=== PATIENT | male | born 1975 | race Caucasian/White ===

== ENCOUNTER 2016-11-25 22:41 | Emergency (ER) | payer BC ==
[~2016-11-25] VITALS: Ht 175.3 cm; Wt 94.5 kg
[~2016-11-25 22:41] MED LIST: IBUP-1542 PO; NPH10OT LEFT EAR
[2016-11-25 22:48] VITALS: Ht 175.3 cm; Wt 94.5 kg
[2016-11-26] MEDS ORDERED: SOD CHLORIDE 0.9% 1,000 ML IV STA (00:14)
[2016-11-26] MEDS ORDERED: morphine 2 MG INJ IV STA (00:14)
[2016-11-26] MEDS ORDERED: ONDANSETRON 4 MG INJ IV STA (00:14)
[2016-11-26 01:03] LABS: BASOPHILS % 0.5 % (0.0-2.0); EOSINOPHILS # 0.2 10^3/ul (0.0-0.5); EOSINOPHILS % 1.9 % (0.0-7.0); HEMATOCRIT 44.7 % (42.0-52.0); HEMOGLOBIN 15.5 g/dl (14.0-18.0); LYMPHOCYTES # 3.6 10^3/ul (0.8-2.9); LYMPHOCYTES % 46.5 % (15.0-51.0); MEAN CORPUSCULAR HEMOGLOBIN 30.3 pg (29.0-33.0); MEAN CORPUSCULAR HGB CONC 34.7 g/dl (32.0-37.0); MEAN CORPUSCULAR VOLUME 87.5 fl (82.0-101.0); MEAN PLATELET VOLUME 9.5 fl (7.4-10.4); MONOCYTE # 0.7 10^3/ul (0.3-0.9); MONOCYTES % 8.3 % (0.0-11.0); NEUTROPHIL # 3.3 10^3/ul (1.6-7.5); NEUTROPHILS % 42.5 % (39.0-77.0); PLATELET COUNT 254 10^3/UL (140-415); RED BLOOD COUNT 5.11 10^6/ul (4.70-6.10); RED CELL DISTRIBUTION WIDTH 11.9 % (11.5-14.5); WHITE BLOOD COUNT 7.8 10^3/ul (4.8-10.8)
[2016-11-26 01:14] LABS: ADD UMIC NO; UR ASCORBIC ACID NEGATIVE (NEGATIVE); UR BILIRUBIN (Dip) NEGATIVE (NEGATIVE); UR BLOOD (Dip) NEGATIVE (NEGATIVE); UR CLARITY CLEAR (CLEAR); UR COLOR STRAW (YELLOW); UR GLUCOSE (Dip) NEGATIVE (NEGATIVE); UR KETONES (Dip) NEGATIVE (NEGATIVE); UR LEUKOCYTE ESTERASE (Dip) NEGATIVE Leu/ul (NEGATIVE); UR NITRITE (Dip) NEGATIVE (NEGATIVE); UR RBC 0 /HPF (0-5); UR SPECIFIC GRAVITY (Dip) 1.015 (1.003-1.030); UR TOTAL PROTEIN (Dip) NEGATIVE (NEGATIVE); UR UROBILINOGEN (Dip) NEGATIVE (NEGATIVE)
[2016-11-26 01:22] LABS: ALBUMIN 4.3 g/dl (3.3-4.9); ALBUMIN/GLOBULIN RATIO 1.04; BILIRUBIN,INDIRECT 0.2 mg/dl (0-1.1); BILIRUBIN,TOTAL 0.2 mg/dl (0.2-1.3); CALCIUM 9.6 mg/dl (8.4-10.2); CREATININE 0.89 mg/dl (0.61-1.24); POTASSIUM 4.1 mmol/L (3.5-5.1); TOTAL PROTEIN 8.4 g/dl (6.1-8.1)
[2016-11-26] MEDS ORDERED: IOHEXOL 300MG/ML 150 ML BTL ONE (01:40)
[2016-11-26] MEDS ORDERED: SOD CHLORIDE 0.9% 100 ML ONE (01:40)
--- NOTE | 2016-11-26 03:41 | RADRPT ---
PROCEDURE: CT Abdomen and pelvis with contrast. CLINICAL INDICATION: Abdominal pain. TECHNIQUE: CT scan of the abdomen and pelvis with contrast was performed on a multi-detector high -resolution CT scanner. The patient was scanned following the uncomplicated administration of 100 c c of Omnipaque 300 intravenous contrast. Coronal and sagittal reformatted images were obtained from the axial source images. Images were reviewed on a high-resolution PACS workstation. One or more of the following dose reduction techniques were used: - Automated exposure control. - Adjustment of the mA and/or kV according to patient size. - Use of iterative reconstruction technique. Exam CTD/vol = 15.49 mGy. Total exam DLP = 1011.33 mGy-cm. COMPARISON: None. FINDINGS: Evaluation of the lung bases demonstrates no pleural or parenchymal disease. Abdomen: The liver is normal in size. There is no focal mass or dilatation of the biliary tree. T he gallbladder is not distended. The spleen, pancreas and bilateral adrenal glands are within cate l limits. Bilateral kidneys are normal in size with symmetric enhancement. There is no focal mass, hydronephrosis or hydroureter. There is no retroperitoneal adenopathy. The abdominal aorta is of normal caliber. There is no abnormal bowel wall thickening or distension. There is no bowel obstruction or free air . A normal appendix is identified. There is no diverticulosis or diverticulitis. There is no asci quan. Pelvis: The bladder is unremarkable. The prostate and seminal vesicles are within normal limits. There is no significant pelvic adenopathy or free fluid. Evaluation of the osseous structures demonstrates no suspicious lytic or blastic lesion. There is a defect of the left pars interarticularis of L5. IMPRESSION: No acute abnormality identified within the abdomen and pelvis. Left pars defect of L5. .Adrián Le MD, MD Date Time Electronically viewed and signed by .Adrián Le MD, MD on 11/26/2016 03:41 .T/
[2016-11-26] MEDS ORDERED: CYCL-319 PO (03:46)
[2016-11-26] MEDS ORDERED: IBUP800T25 PO (03:46)
--- NOTE | 2016-11-26 03:51 | ERD ---
ER Documentation Chief Complaint Date/Time DATE: 11/26/16 TIME: 03:48 Chief Complaint RLQ abd pain x 2 days HPI Patient is a 41-year-old male who presents with a right lower quadrant abdominal pain he has had for 2 days. States the pain is 10 out of 10. He denies any fever. Denies any nausea or vomiting. Denies any dysuria hematuria or increased urinary frequency. Denies any testicular pain. Denies any fever. Pain is worse when bending over. Has not taken any medication for pain. ROS All systems reviewed and are negative except as per history of present illness. Medications Home Meds Active Scripts Ibuprofen* (Motrin*) 800 Mg Tab, 800 MG PO Q6, #30 TAB Prov:BUDDY KNOTT PA-C 11/26/16 Cyclobenzaprine Hcl* (Cyclobenzaprine Hcl*) 10 Mg Tablet, 10 MG PO TID, #20 TAB Prov:BUDDY KNOTT PA-C 11/26/16 Neomycin/Polymyxin/Hydrocort* (Cortisporin* Otic) 10 Ml Susp, 4 DROP LEFT EAR QID for 7 Days, EA Prov:JOHNNY SERRANO MD 01/26/15 Ibuprofen* (Ibuprofen*) 600 Mg Tablet, 600 MG PO Q6, #14 TAB Prov:JOHNNY SERRANO MD 01/26/15 Allergies Allergies: Coded Allergies: No Known Allergy (Unverified , 01/26/15) PMhx/Soc History of Surgery: No Anesthesia Reaction: No Hx Neurological Disorder: No Hx Respiratory Disorders: No Hx Cardiac Disorders: No Hx Psychiatric Problems: No Hx Miscellaneous Medical Probl: No (NO MED HX) Hx Alcohol Use: No Hx Substance Use: No Hx Tobacco Use: No Smoking Status: Never smoker FmHx Family History: No diabetes Physical Exam Vitals Vital Signs Date Time Temp Pulse Resp B/P Pulse Ox O2 Delivery O2 Flow Rate FiO2 11/25/16 22:48 98.4 69 20 170/91 98 Physical Exam Const: [] Head: Atraumatic Eyes: Normal Conjunctiva ENT: Normal External Ears, Nose and Mouth. Neck: Full range of motion..~ No meningismus. Resp: Clear to auscultation bilaterally Cardio: Regular rate and rhythm, no murmurs Abd: Soft, non tender, non distended. Normal bowel sounds Skin: No petechiae or rashes Back: No midline or flank tenderness Ext: No cyanosis, or edema Neur: Awake and alert Psych: Normal Mood and Affect Result Diagram: 11/26/167 11/26/16 0037 Results 24 hrs Laboratory Tests Test 11/26/16 00:27 11/26/16 00:37 Urine Color STRAW Urine Clarity CLEAR Urine pH 6.0 Urine Specific [place] 1.015 Urine Ketones NEGATIVEmg/dL Urine Nitrite NEGATIVEmg/dL Urine Bilirubin NEGATIVEmg/dL Urine Urobilinogen NEGATIVEmg/dL Urine Leukocyte Esterase NEGATIVELeu/ul Urine Microscopic RBC 0/HPF Urine Microscopic WBC 0/HPF Urine Hemoglobin NEGATIVEmg/dL Urine Glucose NEGATIVEmg/dL Urine Total Protein NEGATIVEmg/dl White Blood Count 7.810^3/ul Red Blood Count 5.1110^6/ul Hemoglobin 15.5g/dl Hematocrit 44.7% Mean Corpuscular Volume 87.5fl Mean Corpuscular Hemoglobin 30.3pg Mean Corpuscular Hemoglobin Concent 34.7g/dl Red Cell Distribution Width 11.9% Platelet Count 54768^3/UL Mean Platelet Volume 9.5fl Neutrophils % 42.5% Lymphocytes % 46.5% Monocytes % 8.3% Eosinophils % 1.9% Basophils % 0.5% Nucleated Red Blood Cells % 0.0/100WBC Neutrophils # 3.310^3/ul Lymphocytes # 3.610^3/ul Monocytes # 0.710^3/ul Eosinophils # 0.210^3/ul Basophils # 0.010^3/ul Nucleated Red Blood Cells # 0.010^3/ul Sodium Level 138mmol/L Potassium Level 4.1mmol/L Chloride Level 104mmol/L Carbon Dioxide Level 26mmol/L Anion Gap 12 Blood Urea Nitrogen 16mg/dl Creatinine 0.89mg/dl Glucose Level 98mg/dl Calcium Level 9.6mg/dl Total Bilirubin 0.2mg/dl Direct Bilirubin 0.00mg/dl Indirect Bilirubin 0.2mg/dl Aspartate Amino Transf (AST/SGOT) 32IU/L Alanine Aminotransferase (ALT/SGPT) 49IU/L Alkaline Phosphatase 110IU/L Total Protein 8.4g/dl Albumin 4.3g/dl Globulin 4.10g/dl Albumin/Globulin Ratio 1.04 Lipase 104U/L Current Medications Medications (Trade) Dose Ordered Sig/Jude Route PRN Reason Start Time Stop Time Status Last Admin Dose Admin Sodium Chloride (NS) 1,000 ml @ 1,000 mls/hr Q1H STAT IV 11/26/16 00:14 11/26/16 01:13 DC 11/26/16 00:44 Morphine Sulfate (morphine) 2 mg ONCE STAT IV 11/26/16 00:14 11/26/16 00:17 DC 11/26/16 00:44 Ondansetron HCl (Zofran Inj) 4 mg ONCE STAT IV 11/26/16 00:14 11/26/16 00:17 DC 11/26/16 00:44 IV Flush 10 ml 10 ml STK-MED ONCE .ROUTE 11/26/16 01:40 11/26/16 01:41 DC 11/26/16 02:38 Sodium Chloride (NS) 100 ml @ ud STK-MED ONCE .ROUTE 11/26/16 01:40 11/26/16 01:41 DC 11/26/16 02:39 Iohexol (Omnipaque 300mg/ ml) 150 ml STK-MED ONCE .ROUTE 11/26/16 01:40 11/26/16 01:41 DC 11/26/16 02:39 Procedures/MDM Patient's blood pressure was elevated (>120/80) but appears stable without evidence of hypertension emergency or urgency. The patient was counseled about the risks of hypertension and urged to pursue outpatient monitoring and therapy within a week with their primary care physician. Otherwise vitals are within normal limits. The differential diagnosis includes but is not limited to appendicitis, cholelithiasis, cholecystitis, pancreatitis, hepatitis, gastritis , peptic ulcer disease, bowel obstruction, diverticulitis, renal disease including stones, torsion, AAA, pyelonephritis, and others. He has mild right lower quadrant tenderness. No testicular pain abdominal labs and CT scan were ordered. Laboratory analysis shows no evidence of acute emergent abnormality. No evidence of significant leukocytosis suggesting systemic infection or severe anemia. No evidence of acute renal or liver failure, no evidence of severe alkalosis or acidosis. CT scan also unremarkable. No clear cause for patient' s symptoms however it does not appear to be any emergent cause of his symptoms. His pain might be musculoskeletal. He is discharged with ibuprofen, Silas and Flexeril. Patient counseled regarding my diagnostic impression and care plan. Prior to discharge all questions answered. Pt agrees with treatment plan and understands strict return precautions. Pt is instructed to follow up with primary care provider within 24-48 hours. Precautionary instructions provided including instructions to return to the ER if not improving or for any worsening or changing symptoms or concerns. Departure Diagnosis: Primary Impression: Abdominal pain Condition: Stable Patient Instructions: Abdominal Pain Additional Instructions: Llame al doctor CAMILO y duncan risa DUSTY PARA DENTRO DE 1-2 MAYNARD.Dgale a la secretaria que nosotros le instruimos hacer esta dusty.Avise o llame si barron condicin se empeora antes de la dusty. Regresa aqui si peor o no mejor. BUDDY KNOTT PA-C Nov 26, 2016 03:51
[2016-11-26 03:56] VITALS: BP 152/91; PULSE 66; RESP 20
== END 2016-11-26 04:00 | disposition home or self-care (01) ==
LOC: FTE 22:41
DX: R10.31 Right lower quadrant pain (principal)
CPT/HCPCS: 36415; 74177; 80053; 81003; 83690; 85025; 96374; 96375; 99285; J2270; J2405; J7030; Q9967

== ENCOUNTER 2018-06-11 15:11 | Emergency (ER) | payer BC, OTHER ==
[~2018-06-11] VITALS: Wt 92.0 kg
[~2018-06-11 15:11] MED LIST changes: +CYCL10TA7 PO; +IBUP800T48 PO
[2018-06-11 15:20] VITALS: BP 148/92; PULSE 85; RESP 16
--- NOTE | 2018-06-11 15:45 | EN ---
Date/Time of Note Date/Time of Note DATE: 06/11/18 TIME: 15:44 ER Progress Note MSE performed in 83. She presents with 3-day history of swollen uvula and sore throat. Patient has a history of similar symptoms treated with injections and requests similar treatment. JOHNNY SERRANO MD Jun 11, 2018 15:45
[2018-06-11] MEDS ORDERED: KETOROLAC 60 MG INJ IM STA (16:07)
[2018-06-11] MEDS ORDERED: IBUP800T48 PO (16:13)
[2018-06-11] MEDS ORDERED: AMOX500C2 PO (16:13)
[2018-06-11] MEDS ORDERED: PRED20TA PO (16:20)
--- NOTE | 2018-06-11 16:26 | ERD ---
ER Documentation Chief Complaint Chief Complaint SORE THROAT X 3 DAYS HPI This is a 42-year-old male who presents ED with sore throat times 3 days. Patient admits to difficulty swallowing. Patient states that he has been seen here on 2 other occasions with similar symptoms and he receives 2 injections which resolved symptoms. Patient states that he is also given anabiotic to take at home. Denies ear pain, shortness of breath, trouble breathing, cough, congestion, runny nose, chest pain, nausea, vomiting, diarrhea, constipation and all other symptoms. ROS All systems reviewed and are negative except as per history of present illness. Medications Home Meds Active Scripts Prednisone* (Prednisone*) 20 Mg Tab, 60 MG PO DAILY for 5 Days, TAB Prov:WM ZENG PA-C 06/11/18 Amoxicillin* (Amoxicillin*) 500 Mg Cap, 500 MG PO TID for 10 Days, CAP Prov:WM ZENG PA-C 06/11/18 Ibuprofen* (Motrin*) 800 Mg Tab, 800 MG PO Q6, #30 TAB Prov:WM ZENG PA-C 06/11/18 Ibuprofen* (Motrin*) 800 Mg Tab, 800 MG PO Q6, #30 TAB Prov:BUDDY KNOTT PA-C 11/26/16 Cyclobenzaprine Hcl* (Cyclobenzaprine Hcl*) 10 Mg Tablet, 10 MG PO TID, #20 TAB Prov:BUDDY KNOTT PA-C 11/26/16 Neomycin/Polymyxin/Hydrocort* (Cortisporin* Otic) 10 Ml Susp, 4 DROP LEFT EAR QID for 7 Days, EA Prov:JOHNNY SERRANO MD 01/26/15 Ibuprofen* (Ibuprofen*) 600 Mg Tablet, 600 MG PO Q6, #14 TAB Prov:JOHNNY SERRANO MD 01/26/15 Allergies Allergies: Coded Allergies: No Known Allergy (Unverified , 01/26/15) PMhx/Soc History of Surgery: No Anesthesia Reaction: No Hx Neurological Disorder: No Hx Respiratory Disorders: No Hx Cardiac Disorders: No Hx Psychiatric Problems: No Hx Miscellaneous Medical Probl: No (NO MED HX) Hx Alcohol Use: No Hx Substance Use: No Hx Tobacco Use: No FmHx Family History: No diabetes Physical Exam Vitals Vital Signs Date Temp Pulse Resp B/P (MAP) Pulse Ox O2 O2 Flow FiO2 Time Delivery Rate 06/11/18 98.3 85 16 148/92 97 15:20 (110) Physical Exam Physical Exam Vitals signs: Reviewed by me. General: Well developed, well nourished, in no acute distress. Patient is awake and alert. Head: Normocephalic, atraumatic. Eyes: Normal conjunctiva, Pupils PERRLA, EOM intact grossly ENT: Pharynx is clear, Moist mucous membranes, external ears, nose and mouth normal, there is moderate oropharyngeal erythema, mild tonsillar adenopathy,, no exudate, no uvula deviation, no uvula swelling, no kissing tonsils, airway is patent, no stridor, normal nasal mucosa, tympanic membrane visualized bilaterally no bulging, erythema, purulent air-fluid line seen, Neck: Supple, no masses, lymphadenopathy or JVD Respiratory: Clear to auscultation bilaterally with no wheezing, rhonchi, rales, no distress Cardiovascular: RRR, no murmurs, rubs, or gallops Neurologic: Alert and oriented, moving all extremities, normal speech, no focal weakness, no cerebellar signs. Normal mentation Skin: warm and dry, No rash Psych: Normal mood Results 24 hrs Current Medications Medications Dose Sig/Jude Start Time Status Last (Trade) Ordered Route PRN Stop Time Admin Dose Reason Admin 10 mg ONCE ONCE 06/11/18 Dexamethasone IM 16:30 (Decadron) 06/11/18 16:31 Ketorolac 60 mg ONCE STAT 06/11/18 DC Tromethamine IM 16:07 (Toradol) 06/11/18 16:09 Procedures/MDM ER COURSE: The patient was given IM Toradol and IM Decadron The medication was well tolerated and the patient reports improvement in symptoms. The patient was stable throughout ED course. I kept the patient and/or family informed of laboratory and diagnostic imaging results throughout the emergency room course. The patient was promptly evaluated and a treatment plan was devised based on H&P and other data. This plan was discussed with the patient who agreed and had no further questions or concerns prior to discharge. MEDICAL DECISION MAKIN-year-old male presents ED with sore throat times 3 days. Patient has had similar symptoms in the past which she was treated with IM Toradol and IM Decadron and also at home antibiotics and states that it resolves his symptoms. Patient was given IM Toradol and IM Decadron in the emergency department today and reports feeling much better. Patient's airway is patent and there is no stridor. At this time there is no ENT emergency. No evidence of retropharyngeal abscess, peritonsillar abscess, Bar, epiglottitis, sepsis, meningitis, among others. Vitals are stable patient can be managed with close outpatient follow-up. Advised patient to follow-up with his primary care in the next 48 hours. Return to ED with any worsening symptoms DISPOSITION PLAN: We discussed follow up with the patient's primary care doctor within 24 to 48 hours. Patient counseled regarding my diagnostic impression and care plan. Prior to discharge all questions answered. Pt agrees with treatment plan and understands strict return precautions. Precautionary instructions provided including instructions to return to the ER if not improving or for any worsening or changing symptoms or concerns. SPECIALIST FOLLOW UP RECOMMENDED: None Patient has been advised to follow up with primary care in 1-2 days. Disclaimer: Inadvertent spelling and grammatical errors are likely due to EHR/dictation software use and do not reflect on the overall quality of patient care. Also, please note that the electronic time recorded on this note does not necessarily reflect the actual time of the patient encounter. Blood Pressure Assessment: Patient's blood pressure was elevated (>120/80) but appears stable without evidence of hypertension emergency or urgency. The patient was counseled about the risks of hypertension and urged to pursue outpatient monitoring and therapy within a week with their primary care physician. Departure Diagnosis: Primary Impression: Pharyngitis Pharyngitis/tonsillitis etiology: unspecified etiology Qualified Codes: J02.9 - Acute pharyngitis, unspecified Condition: Stable Patient Instructions: Pharyngitis, Strep (Presumed), Pharyngitis, Viral Referrals: [facility] Usted se carpenter hecho un examen mdico de control que le indica que no est en risa condicin que requiera tratamiento urgente en el Departamento de Emergencia. Un estudio ms profundo y el tratamiento de barron condicin pueden esperar sin ningn riesgo hasta que usted sea atendida/o en el consultorio de barron mdico o risa clnica. Es responsabilidad suya arreglar risa valdemar para el seguimiento del mehdi. MANEJO DE CONDICIONES NO URGENTES EN EL FUTURO 1) Si usted tiene un mdico de atencin primaria: Usted debera llamar a barron mdico de atencin primaria antes de venir al departamento de emergencia. Despus de las horas de consultorio, barron doctor o barron asociado/a est disponible por telfono. El mdico o enfermero de irais en el servicio telefnico puede asesorarle por flor medio para atender el problema, o mehdi contrario se puede programar risa valdemar. 2) Si usted no tiene un mdico de atencin primaria: Llame al mdico o clnica de referencia que aparece abajo irvin las horas de consultorio para hacer risa valdemar para que le vean. CLINICAS: [facility] [phone] [facility] [phone] [address] [facility]. [facility] [phone] [address] [facility] [facility] [phone] [address] [facility]. [facility] [phone] [address] [facility]. [phone] Additional Instructions: Paciente aconseja volver a Departamento de urgencias inmediatamente para sntomas nuevos o que empeoran . Paciente aconseja posteriores con el PCP en 1-2 saavedra . Paciente verbaliza la comprehensin y est de acuerdo con el tratamiento y el curso de accin. Si el paciente no tiene ninguna de atencin primaria pueden seguir con [facility] [address] [place] [address] o [facility] [address] [address] WM ZENG PA-C Jun 11, 2018 16:26
[2018-06-11] MEDS ORDERED: DEXAMETHASONE 10 MG/ML 1 ML INJ IM ONE (16:30)
== END 2018-06-11 16:44 | disposition home or self-care (01) ==
LOC: FTE 15:11
DX: J02.9 Acute pharyngitis, unspecified (principal)
CPT/HCPCS: 96372; 99284; J1100; J1885